=== PATIENT | male | born 2000 | race African-American/Black ===

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

== ENCOUNTER 2021-04-12 15:43 | Emergency (ER) | payer MEDICAID, OTHER ==
[~2021-04-12] VITALS: Ht 172.7 cm; Wt 81.8 kg
[2021-04-12 16:48] LABS: COVID AG,FIA SOURCE NASOPHARYNGEAL
[2021-04-12 17:20] VITALS: BP 139/75
== END 2021-04-12 18:11 | disposition home or self-care (01) ==
LOC: EMS 15:47
DX: Z20.822 Contact with and (suspected) exposure to COVID-19 (principal)
CPT/HCPCS: 99283